=== PATIENT | female | born 1965 | race Caucasian/White ===

== ENCOUNTER 2017-04-08 12:09 | Outpatient (CLI) | payer OTHER ==
[2017-04-08 12:54] LABS: #Basophils 0.1 thou/uL (0.0-0.2); #Eosinphils 0.1 thou/uL (0.0-0.7); #Lymphocytes 1.7 thou/uL (1.20-3.40); #Monocytes 0.3 thou/uL (0.11-0.59); #Neutrophils 3.2 thou/uL (1.40-6.50); %Basophils 1.1 % (0.0-1.0); %Eosinophils 2.7 % (0.0-10.0); %Lymphocytes 30.3 % (21.0-51.0); %Monocytes 6.3 % (0.0-10.0); %Neutrophils 59.7 % (42.0-75.0); Hemoglobin 13.9 g/dL (12.0-16.0); Mean Corpuscular HGB CONC 32.8 g/dL (32.0-36.0); Mean Corpuscular Hemoglobin 28.4 pg (27.0-31.0); Mean Corpuscular Volume 86.8 fl (81.0-99.0); Mean Platelet Volume 7.7 fL (7.4-10.4); Platelet Count 216 thou/uL (130-400); RBC Distribution Width 11.6 % (11.5-14.5); Red Blood Cell (RBC) Count 4.89 mill/uL (4.20-5.40); White Blood Cell (WBC) Count 5.4 thou/uL (4.8-10.8)
[2017-04-08 13:09] LABS: Hemoglobin A1c 5.2 % (4.0-6.0)
[2017-04-08 13:14] LABS: ALT (SGPT) 20 U/L (8-55); AST (SGOT) 23 U/L (5-34); Albumin 4.6 g/dL (3.5-5.0); Alkaline Phosphatase 65 U/L (40-150); Anion Gap 15 mmol/L (10-20); BUN (Urea Nitrogen) 15 mg/dL (9.8-20.1); Bilirubin, Direct 0.2 mg/dL (0.1-0.3); Bilirubin, Total 0.5 mg/dL (0.2-1.2); Calc. Creatinine Clearance 0 mL/min (70-130); Calcium 9.9 mg/dL (7.8-10.44); Carbon Dioxide 28 mmol/L (22-29); Cardiac Risk 3.9 (Less than 4.5); Chloride 102 mmol/L (98-107); Cholesterol 231 mg/dl (< 200 Desired); Estimated GFR-MDRD 73; Glucose 93 mg/dL (70-105); HDL Cholesterol 59 mg/dL (>60 Neg Risk); LDL Cholesterol, Calculated 154 mg/dL; Protein, Total 7.5 g/dL (6.0-8.3); Sodium 141 mmol/L (136-145); Triglycerides 88 mg/dL (Less than 150)
[2017-04-08 13:28] LABS: Thyroid Stimulating Hormone 1.5312 uIU/mL (0.35-4.94)
--- NOTE | 2017-04-08 15:46 | ULT ---
THYROID ULTRASOUND: 04/08/17 HISTORY: 52-year-old female with a thyroid mass. The right lobe measures 3.8 x 1.4 x 1.4 cm. The left lobe measures 4.0 x 1.1 x 1.4 cm. The isthmus m easures 0.2 cm. No solid or cystic nodule. IMPRESSION: Normal thyroid ultrasound. No evidence for thyroid nodule. POS: [facility]
== END 2017-04-08 12:10 ==
LOC: NAV ULT 12:09
PROVIDERS: ATTEND Family Medicine
DX: K22.2 Esophageal obstruction (principal); J39.2 Other diseases of pharynx; I10 Essential (primary) hypertension
CPT/HCPCS: 36415; 76536; 80048; 80061; 80076; 83036; 84443; 85025; 86803